=== PATIENT | male | born 1990 | race Caucasian/White ===

== ENCOUNTER 2019-10-19 17:08 | Emergency (ER) | payer BC ==
[2019-10-19] MEDS ORDERED: Morphine 4 MG/ML Syringe IVPUSH ONE (17:14)
[2019-10-19] MEDS ORDERED: Diphtheria,Pertussis(Acell),Tetanus Vaccine 0.5 ML Syringe IM ONE (17:14)
[2019-10-19] MEDS ORDERED: Lactated Ringers 1,000 ML IV ONE (17:14)
[2019-10-19] MEDS ORDERED: ceFAZolin 1 GM in Premix Bag 1 BAG IV ONE (17:14)
[2019-10-19] MEDS ORDERED: Sodium Chloride 0.9% 10 ML Syringe FLUSH PRN (17:15)
[2019-10-19] MEDS ORDERED: Sodium Chloride 0.9% 2.5 ML Syringe FLUSH PRN (17:15)
[2019-10-19] MEDS ORDERED: Sodium Chloride 0.9% 10 ML SDV IV PRN (17:15)
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
[2019-10-19 18:09] LABS: BLOOD UREA NITROGEN,BUN 19 mg/dL (7.0-18.0); CARBON DIOXIDE,CO2 26.9 mmol/L (21.0-32.0); CHLORIDE,CL 103 mmol/L (98-107); GLUCOSE RANDOM 106 mg/dL (74-106); SODIUM,NA 141 mmol/L (136-148)
== END 2019-10-19 19:55 ==
LOC: MW.ED 17:08
DX: S61.231A Puncture wound without foreign body of left index finger without damage to nail, initial encounter (principal); S61.233A Puncture wound without foreign body of left middle finger without damage to nail, initial encounter; Z23 Encounter for immunization; W32.0XXA Accidental handgun discharge, initial encounter
CPT/HCPCS: 73130; 80053; 85025; 85610; 85730; 86850; 86900; 86901; 90471; 90715; 96365; 96375; 99291; J0690; J2270; J7120; 99285

== ENCOUNTER 2024-04-13 07:45 | Emergency (ER) | payer OTHER, BC ==
[2024-04-13 08:24] LABS: BASOPHILS ABSOLUTE AUTO 0.05 K/uL (0.00-0.20); BASOPHILS PERCENT AUTO 0.4 % (0.0-1.0); EOSINOPHILS ABSOLUTE AUTO 0.09 K/uL (0.00-0.45); EOSINOPHILS PERCENT AUTO 0.7 % (0.0-6.0); HEMATOCRIT 41.7 % (42.0-52.0); HEMOGLOBIN 13.7 g/dL (14.0-18.0); IMMATURE GRAN ABSOLUTE AUTO 0.08 K/uL (0.00-0.05); IMMATURE GRAN PERCENT AUTO 0.6 % (0.0-0.4); LYMPHOCYTES ABSOLUTE AUTO 1.98 K/uL (1.00-4.80); LYMPHOCYTES PERCENT AUTO 15.6 % (24.0-44.0); MEAN CORPUSCULAR HEMOGLOBIN 27.7 pg (28.0-32.0); MEAN CORPUSCULAR HGB CONC 32.9 g/dL (32.0-36.0); MEAN CORPUSCULAR VOLUME 84.4 fL (83.0-99.0); MEAN PLATELET VOLUME 10.5 fL (9.4-12.4); MONOCYTES ABSOLUTE AUTO 0.93 K/uL (0.00-0.80); MONOCYTES PERCENT AUTO 7.3 % (0.0-8.0); NEUTROPHILS ABSOLUTE AUTO 9.57 K/uL (1.80-7.70); NEUTROPHILS PERCENT AUTO 75.4 % (41.0-71.0); PLATELET COUNT,PLT 192 K/uL (150-400); RED BLOOD CELL COUNT 4.94 M/uL (4.52-5.90)
[2024-04-13] MEDS: Lactated Ringers 1,000 ML IV SCH (08:24)
[2024-04-13] MEDS: Ketorolac 30 MG/ML SDV IVPUSH ONE (08:24)
[2024-04-13] MEDS: Sodium Chloride 0.9% 1,000 ML IV ONE (08:29)
[2024-04-13 08:38] LABS: CALCIUM 8.9 mg/dL (8.5-10.1); CARBON DIOXIDE,CO2 26.5 mmol/L (21.0-32.0); CREATININE 1.1 mg/dL (0.8-1.3); EST CRCL DRUG DOSING (CG) 91.55 mL/min
[2024-04-13 08:40] LABS: INR 1.01 (0.86-1.11)
== END 2024-04-13 09:57 | disposition home or self-care (01) ==
LOC: MW.ED 07:45
DX: S22.019A Unspecified fracture of first thoracic vertebra, initial encounter for closed fracture (principal); S12.600A Unspecified displaced fracture of seventh cervical vertebra, initial encounter for closed fracture; S02.2XXA Fracture of nasal bones, initial encounter for closed fracture; S02.31XA Fracture of orbital floor, right side, initial encounter for closed fracture; Z79.51 Long term (current) use of inhaled steroids; Z79.899 Other long term (current) drug therapy; V49.40XA Driver injured in collision with unspecified motor vehicles in traffic accident, initial encounter; Y92.410 Unspecified street and highway as the place of occurrence of the external cause
CPT/HCPCS: 36415; 70450; 71250; 72125; 72128; 80048; 85025; 85610; 96361; 96374; 99285; J1885; J7120